=== PATIENT | male | born 1955 | race Caucasian/White ===

== ENCOUNTER 2017-12-19 13:35 | Emergency (ER) | payer OTHER ==
[~2017-12-19] VITALS: Ht 193 cm; Wt 158.8 kg
[~2017-12-19 13:35] MED LIST: ATORVASTATIN CA40 M1 PO; CARVEDILOL3.125 M1 PO; DIGITEK125 MCG PO; INDOCIN25 MG PO; NORCO 325 MG-51 TAB PO; PRADAXA150 M1 PO; VALSARTAN-HCTZ1 EAC2 PO; ZITHROMAX250 M2 PO
--- NOTE | 2017-12-19 14:15 | ED MVC/FALL/TRAUMA COMPLAINT ---
History of Present Illness General Chief Complaint: Trunk Injury Stated Complaint: ?RIB PAIN S/P FALL Source: patient Exam Limitations: no limitations Vital Signs & Intake/Output Vital Signs & Intake/Output Vital Signs Date Time Temp Pulse Resp B/P B/P Pulse O2 O2 Flow FiO2 Mean Ox Delivery Rate 12/19 1525 98.2 77 16 128/66 97 Room Air 12/19 1341 97.5 80 16 138/83 96 Room Air Allergies Coded Allergies: NO KNOWN ALLERGIES (12/19/17) Reconcile Medications Atorvastatin Calcium 40 MG TABLET 1 TAB PO DAILY CHOLESTEROL Azithromycin (Zithromax) 250 MG TABLET 1 DP PO AD SINUSITIS 2 the first day followed by 1 for days 2-5 Carvedilol 3.125 MG TABLET 1 TAB PO BID ATRIAL FIBRILLATION Dabigatran Etexilate Mesylate (Pradaxa 150 MG) 150 MG CAPSULE 1 CAP PO BID BLOOD THINNER (Reported) Digoxin (Digitek) 125 MCG TABLET 1 TAB PO DAILY ATRIAL FIBRILLATION Oxycodone HCl/Acetaminophen (Percocet 5-325 MG Tablet) 5 MG-325 MG TABLET 1 TAB PO 4 TIMES/DAY PRN PAIN Valsartan/Hydrochlorothiazide (Valsartan-Hctz 160-25 MG Tab) 160 MG-25 MG TABLET 1 TAB PO DAILY HIGH BLOOD PRESSURE Triage Note: PT STATES HE SLIPPED ON HIS STAIRS TWO NIGHTS AGO LANDED ON HIS LEFT SIDE. PT STATES HE FEELS LIKE HE CRACKED A FEW RIBS. SPOUSE REPORTS PT WAS UNABLE TO GET OUT OF BED YESTERDAY DUE TO PAIN. PT DENIES SOB STATES HE UST HAS PAIN WHEN HE BREATHS DEEP Triage Nurses Notes Reviewed? yes Onset: Abrupt Duration: day(s): (2-3), constant, continues in ED Timing: single episode today Severity: moderate, severe Severity Numbers: 8 Injuries/Fall Location: chest, back Method of Injury: fall Loss of Consciousness: no loss of consciousness No Modifying Factors: none Associated Symptoms: chest pain HPI: 62-year-old male past medical history of atrial fibrillation, hypertension presents for evaluation of left-sided rib and flank pain after a fall. Patient states that yesterday he was walking down the stairs when he got the final 2 steps he slipped and landed his left lateral ribs and left flank on the stairs. There was no head strike or loss of consciousness. No neck pain hip pain. He was able to get up and walk. He states that the pain is located in the left lateral ribs and left flank. The pain is worse with deep inspiration touching the area laying on the area and movement. No hemoptysis shortness of breath cough fever. No chest pain. No headaches back pain and neck pain. he has not taken any medicine. ([place]) Past History Travel History Traveled to [place] past 21 day No Medical History Any Pertinent Medical History? see below for history Neurological: NONE EENT: NONE Cardiovascular: AFIB, hypertension, hyperlipidemia Respiratory: NONE Gastrointestinal: GASTRIC SLEEVE 2012 Hepatic: NONE Renal: NONE Musculoskeletal: NONE Psychiatric: NONE Endocrine: NONE Blood Disorders: NONE Cancer(s): NONE EMERGENCY ROOM ORDERLY/Reproductive: NONE Surgical History Surgical History: GASTRIC SLEEVE 2012, SPLEENECTOMY,IMBILICAL HERNIA Psychosocial History What is your primary language Barbadian Tobacco Use: Current Not Daily Daily Tobacco Use Amount/Type: =< 4 Cigarettes daily ETOH Use: occasional use Illicit Drug Use: denies illicit drug use Family History Hx Contributory? No ([place]) Review of Systems Review of Systems Constitutional: Reports: no symptoms. Eyes: Reports: no symptoms. Ears, Nose, Throat, Mouth: Reports: no symptoms. Respiratory: Reports: see HPI. Cardiovascular: Reports: no symptoms. Gastrointestinal/Abdominal: Reports: see HPI, abdominal pain (flank pain ). Genitourinary: Reports: no symptoms. Musculoskeletal: Reports: no symptoms. Skin: Reports: no symptoms. Neurological/Psychological: Reports: no symptoms. All Other Systems: Reviewed and Negative ([place]) Physical Exam Physical Exam General Appearance: well developed/nourished, no apparent distress, alert, awake Head: atraumatic, normal appearance Eyes: Bilateral: normal appearance, PERRL, EOMI. Ears, Nose, Throat, Mouth: hearing grossly normal, moist mucous membrane Neck: normal inspection, supple, full range of motion Respiratory: normal breath sounds, no respiratory distress, lungs clear, left lateral ribs tender to palpation. No bruising swelling or abrasions Cardiovascular: regular rate/rhythm, normal peripheral pulses Peripheral Pulses: 2+ radial (R), 2+ radial (L) Gastrointestinal: normal bowel sounds, soft, no organomegaly, tenderness (left flank) Back: normal inspection, normal range of motion, left thoracic paraspinous muscles tender to palpation. No step-offs or deformities no bruising swelling and abrasions Extremities: normal range of motion Neurologic/Psych: no motor/sensory deficits, awake, alert, oriented x 3, normal gait, normal mood/affect Skin: intact, normal color, warm/dry Core Measures ACS in differential dx? No CVA/TIA Diagnosis No Sepsis Present: No Sepsis Focused Exam Completed? No (Mike SOLANO,[place]) Progress Differential Diagnosis: aoritic dissection, abd injury, C/T/L spine injury, ext injury, ICH, pelvis injury, pnemothorax, spinal cord injury Plan of Care: Orders Procedure Date/time Status CT CHEST WO IV CONTRAST 12/[address] ABD & PELVIS W/O IV CONTRAS 12/19 1352 Active Patient seen and evaluated. He has left lateral rib and left flank pain. He does take pradaxa for a fibrillation treatment. We'll check a CT scan of the chest and abdomen to rule out trauma. Patient medicated with Percocet. Patient is feeling much better after Percocet. CT scan is negative for trauma. Patient will be instructed to rest and apply ice avoid excessive physical activity. Incentive spirometry. Pain is well-controlled he has a steady gait. Tylenol ibuprofen Percocet for pain and follow-up with primary care doctor discussed return precautions patient agrees the plan. Diagnostic Imaging: Viewed by Me: CT Scan. Discussed w/RAD: CT Scan. Radiology Impression: PATIENT: CECILY ARMSTRONG PRESENT AGE: 62 PATIENT ACCOUNT NO: [id number] : 54 LOCATION: [facility] ORDERING PHYSICIAN: Braxton SOLANO SERVICE DATE: 12/19/17 EXAM TYPE: CAT - CT ABD & PELVIS W/O IV CONTRAS; CT CHEST WO IV CONTRAST EXAMINATION: CT CHEST, ABDOMEN, AND PELVIS WITHOUT CONTRAST CLINICAL INFORMATION: 62-year-old man with fall onto left side and left rib and flank pain. COMPARISON: None TECHNIQUE: Multidetector volumetric imaging was performed from the thoracic inlet through the pubic symphysis. Sagittal and coronal reformatted images were obtained on the technologist's workstation. DLP: 2514 mGy-cm FINDINGS: LUNGS: Aside from minimal atelectasis at the right lung base, the lungs are well expanded and clear, without evidence of focal consolidation, masses, or pneumothorax. There is no significant mediastinal, hilar, or axillary lymphadenopathy. There are no pleural or pericardial effusions. ABDOMEN: The liver, pancreas, gallbladder, adrenals, and right kidney are normal in appearance. A 2 mm nonobstructive calculus is seen in the midpole of the left kidney. There is mild nonspecific perinephric stranding. There is suture along the greater curvature of the stomach that could reflect prior bypass surgery. A 7 cm rounded soft tissue density in the left upper quadrant could reflect a large splenule. PELVIS: Nondilated loops of large and small bowel are unremarkable in appearance. The appendix and terminal ileum are not inflamed. The prostate, seminal vesicles, and bladder are normal in appearance. No free peritoneal air or fluid is appreciated. Postsurgical changes are seen in the ventral abdominal wall. IMPRESSION: No noncontrast CT evidence of acute traumatic injury in the chest, abdomen, or pelvis. DICTATED BY: Sara Mondragon MD DATE/TIME DICTATED:12/19/171445 HOOP PUNCHER:DANAE DATE/TIME TRANSCRIBED:12/19/171445 CONFIDENTIAL, DO NOT COPY WITHOUT APPROPRIATE AUTHORIZATION. ([place]) Departure Departure Disposition: HOME OR SELF CARE Condition: Stable Clinical Impression Primary Impression: Rib pain on left side Referrals: Jim MONTANEZ,Desiree Gonzalez (PCP/Family) Additional Instructions: Rest, avoid heavy lifting bending or physical activity. Tylenol and ibuprofen as needed for pain. Percocet for severe pain only this may cause drowsiness. Use incentive spirometer as directed. Follow-up with her primary care doctor this week for recheck. Monitor symptoms return with any concerns. Departure Forms: Customer Survey General Discharge Information Prescriptions: Current Visit Scripts Oxycodone HCl/Acetaminophen (Percocet 5-325 MG Tablet) 1 TAB PO 4 TIMES/DAY PRN PAIN #10 TAB ([place]) PA/UKE DRIVER Co-Sign Statement Statement: ED Attending supervision documentation- [] I saw and evaluated the patient. I have also reviewed all the pertinent lab results and diagnostic results. I agree with the findings and the plan of care as documented in the PA's/UKE DRIVER's documentation. [X] I have reviewed the ED Record and agree with the PA's/UKE DRIVER's documentation. [] Additions or exceptions (if any) to the PAs/UKE DRIVER's note and plan are summarized below: [] (Mahesh MONTANEZ,Vicki)
--- NOTE | 2017-12-19 14:57 | CT SCAN REPORT ---
EXAMINATION: CT CHEST, ABDOMEN, AND PELVIS WITHOUT CONTRAST CLINICAL INFORMATION: 62-year-old man with fall onto left side and left rib and flank pain. COMPARISON: None TECHNIQUE: Multidetector volumetric imaging was performed from the thoracic inlet through the pubic symphysis. Sagittal and coronal reformatted images were obtained on the technologist's workstation. DLP: 2514 mGy-cm FINDINGS: LUNGS: Aside from minimal atelectasis at the right lung base, the lungs are well expanded and clear, without evidence of focal consolidation, masses, or pneumothorax. There is no significant mediastinal, hilar, or axillary lymphadenopathy. There are no pleural or pericardial effusions. ABDOMEN: The liver, pancreas, gallbladder, adrenals, and right kidney are normal in appearance. A 2 mm nonobstructive calculus is seen in the midpole of the left kidney. There is mild nonspecific perinephric stranding. There is suture along the greater curvature of the stomach that could reflect prior bypass surgery. A 7 cm rounded soft tissue density in the left upper quadrant could reflect a large splenule. PELVIS: Nondilated loops of large and small bowel are unremarkable in appearance. The appendix and terminal ileum are not inflamed. The prostate, seminal vesicles, and bladder are normal in appearance. No free peritoneal air or fluid is appreciated. Postsurgical changes are seen in the ventral abdominal wall. IMPRESSION: No noncontrast CT evidence of acute traumatic injury in the chest, abdomen, or pelvis.
[2017-12-19] MEDS ORDERED: PERCOCET 5-3251 EACH PO (15:09)
[2017-12-19 15:25] VITALS: BP 128/66
== END 2017-12-19 15:38 ==
LOC: ERH 13:35
DX: R07.81 Pleurodynia (principal)
CPT/HCPCS: 74176